=== PATIENT | male | born 1965 | race Caucasian/White ===

== ENCOUNTER 2017-05-10 10:25 | Inpatient (IN) | payer OTHER ==
[~2017-05-10] VITALS: Ht 175.3 cm; Wt 80.7 kg
[2017-05-18] VITALS (25 sets, daily range): BP systolic 85–127; BP diastolic 45–85; PULSE 62–89; RESP 10–20; Ht 175.3 cm; Wt 80.7 kg
--- NOTE | 2017-05-18 06:27 | HP ---
DATE OF ADMISSION: 05/18/2017 SUBJECTIVE: This patient was originally seen in the office for evaluation of low back pain with pain going into the lower extremities. 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 Conservative management was offered to the patient in the form of an epidural injections. The patient did not improved. He also received physical therapy and pain management, which did not help the patient at all. Condition is getting worse. The patient is having more pain and is having difficulty with day-to-day activities. It is sounding more definite nothing can be done. At this point, the only option left is surgical intervention. PAST MEDICAL HISTORY: Per chart. PAST SURGICAL HISTORY: Per chart. SOCIAL HISTORY: Denies. ALLERGIES: PER CHART. MEDICATIONS: [__per chart__]. FAMILY HISTORY: Unremarkable. REVIEW OF SYSTEMS: A 10-point review of systems is conducted. Pertinent positives in HPI. PHYSICAL EXAMINATION: GENERAL: The patient is awake, oriented, follows commands properly. He is somewhat uncomfortable sitting in the chair. He is restless. He is constantly moving from left to right and right to left. HEENT: Unremarkable. No signs of oral lesions. NECK: Supple. No thyromegaly. No JVD. No accessory muscle use. PULMONARY: Lungs are clear. ABDOMEN: Soft without guarding. NEURO EXAM: Awake, alert, and oriented. Cranial nerves 2-12 are intact. EXTREMITIES: Upper extremity examination, moves both sides equally, the shoulders, elbows, wrist. Lower extremity examination, on flexion and extension of lumbar spine, the patient has severe low back pain. Flexion and extension of the hips, he has low back pain. He moves both sides equally. I think his knees and ankle sensation is intact throughout. DIAGNOSTICS: MRI of the lumbar spine shows severe lateral recess stenosis on left L3-4 and right L4-L5, l5-s1 stenosis RECOMMENDATIONS: l3-4-5-s1 bilateral laminectomy with in situ fusion.Complications of surgery discussed with pt extensively, pt wants to go ahead with procedure. Dictated By: Augusto Bradford MD /[email or web address]/rosy /Document#: [id number] HENRY
[2017-05-18] MEDS ORDERED: EPHEDrine SULFATE 50 MG/5 ML SYG ONE (07:00)
[2017-05-18] MEDS ORDERED: SUCCINYLCHOLINE CHLORIDE 100 MG/5 ML SYG IV ONE (07:00)
[2017-05-18] MEDS ORDERED: GELATIN SIZE 100 SPONGE ONE ×2 (10:42→13:27)
[2017-05-18] MEDS ORDERED: BUPIVACAINE 0.5%/EPI (SDV) 10 ML INJ ONE (10:43)
[2017-05-18] MEDS ORDERED: THROMBIN 5000 UNIT VIAL ONE (10:43)
[2017-05-18] MEDS ORDERED: IBUP-1542 PO (11:10)
[2017-05-18] MEDS ORDERED: METH500T8 PO (11:12)
[2017-05-18 11:56] LABS: ADD UMIC NO; UR ASCORBIC ACID NEGATIVE (NEGATIVE); UR BILIRUBIN (Dip) NEGATIVE (NEGATIVE); UR BLOOD (Dip) NEGATIVE (NEGATIVE); UR CLARITY CLEAR (CLEAR); UR COLOR YELLOW (YELLOW); UR GLUCOSE (Dip) NEGATIVE (NEGATIVE); UR KETONES (Dip) NEGATIVE (NEGATIVE); UR LEUKOCYTE ESTERASE (Dip) NEGATIVE Leu/ul (NEGATIVE); UR NITRITE (Dip) NEGATIVE (NEGATIVE); UR SPECIFIC GRAVITY (Dip) 1.019 (1.003-1.030); UR TOTAL PROTEIN (Dip) NEGATIVE (NEGATIVE); UR UROBILINOGEN (Dip) NEGATIVE (NEGATIVE)
[2017-05-18] MEDS ORDERED: PROPOFOL 20 ML ONE (12:05)
[2017-05-18] MEDS ORDERED: LIDOCAINE 2% (SDV) 5 ML INJ ONE (12:05)
[2017-05-18] MEDS ORDERED: MIDAZOLAM 1 MG/ML 2 ML INJ ONE (12:06)
[2017-05-18] MEDS ORDERED: FENTAnyl 50 MCG/ML VIAL ONE (12:06)
[2017-05-18 12:11] LABS: INR 0.97; PROTIME 12.9 Sec (12.2-14.2)
[2017-05-18 12:12] LABS: ALBUMIN 4.2 g/dl (3.3-4.9); ALBUMIN/GLOBULIN RATIO 1.2; BILIRUBIN,INDIRECT 0.7 mg/dl (0-1.1); BILIRUBIN,TOTAL 0.7 mg/dl (0.2-1.3); TOTAL PROTEIN 7.7 g/dl (6.1-8.1)
[2017-05-18] MEDS ORDERED: OCULAR LUBRICANT 3.5 GM OPH OINT ONE (12:15)
[2017-05-18 12:18] LABS: BASOPHILS % 0.5 % (0.0-2.0); EOSINOPHILS % 0.5 % (0.0-7.0); HEMOGLOBIN 14.8 g/dl (14.0-18.0); LYMPHOCYTES # 1.6 10^3/ul (0.8-2.9); LYMPHOCYTES % 21.7 % (15.0-51.0); MEAN CORPUSCULAR HEMOGLOBIN 29.3 pg (29.0-33.0); MEAN CORPUSCULAR HGB CONC 33.6 g/dl (32.0-37.0); MEAN CORPUSCULAR VOLUME 87.1 fl (82.0-101.0); MEAN PLATELET VOLUME 10.1 fl (7.4-10.4); MONOCYTE # 0.6 10^3/ul (0.3-0.9); MONOCYTES % 7.6 % (0.0-11.0); NEUTROPHILS % 69.4 % (39.0-77.0); PLATELET COUNT 234 10^3/UL (140-415); RED BLOOD COUNT 5.05 10^6/ul (4.70-6.10); RED CELL DISTRIBUTION WIDTH 13.7 % (11.5-14.5); WHITE BLOOD COUNT 7.5 10^3/ul (4.8-10.8)
[2017-05-18 12:20] LABS: CALCIUM 9.3 mg/dl (8.4-10.2); CREATININE 0.87 mg/dl (0.61-1.24); POTASSIUM 3.8 mmol/L (3.5-5.1)
[2017-05-18] MEDS ORDERED: DEXAMETHASONE 4 MG/ML 1 ML INJ ONE (12:28)
[2017-05-18] MEDS ORDERED: CEFAZOLIN 1 GM INJ ONE (12:28)
[2017-05-18] MEDS ORDERED: ONDANSETRON 4 MG INJ ONE (12:28)
[2017-05-18] MEDS ORDERED: ROCURONIUM 50 MG INJ ONE (12:28)
[2017-05-18] MEDS ORDERED: METOCLOPRAMIDE 10 MG INJ ONE (12:28)
[2017-05-18] MEDS ORDERED: ACETAMINOPHEN 1000MG/100ML IV 100 ML ONE (12:36)
[2017-05-18] MEDS ORDERED: HYDROmorphONE 2 MG/ML SYG ONE (12:45)
[2017-05-18] MEDS ORDERED: POLYMYXIN/BACITRACIN 1L IRRIG IRR ONE (12:54)
[2017-05-18 13:27] LABS: PARTIAL THROMBOPLASTIN TIME 31.1 Sec (25.0-35.0)
[2017-05-18] MEDS ORDERED: PROCHLORPERAZINE 10 MG INJ IV PRN (13:30)
[2017-05-18] MEDS ORDERED: oxyCODONE 5 MG TAB PO PRN ×2 (13:30)
[2017-05-18] MEDS ORDERED: DIPHENHYDRAMINE 50 MG INJ IV PRN (13:30)
[2017-05-18] MEDS ORDERED: ONDANSETRON 4 MG INJ IV PRN ×2 (13:30→14:30)
[2017-05-18] MEDS ORDERED: HYDROmorphONE (0.2 MG/ML) 10ML SYG IV PRN (13:30)
[2017-05-18] MEDS ORDERED: FENTAnyl 50 MCG/ML VIAL IV PRN (13:30)
[2017-05-18] MEDS ORDERED: MEPERIDINE 25 MG INJ IV PRN (13:30)
[2017-05-18] MEDS ORDERED: GLYCOPYRROLATE 1 MG INJ ONE (13:42)
[2017-05-18] MEDS ORDERED: NEOSTIGMINE 3 MG/3 ML SYRINGE ONE (13:42)
--- NOTE | 2017-05-18 14:12 | SIPON ---
Date/Time of Note Date/Time of Note DATE: 05/18/17 TIME: 14:09 Operative Report Free Text/Dictation lumbar 3 to s1 laminectomy with in situ fusion Preoperative Diagnosis lumbar 3 to s1 severe stenosis Postoperative Diagnosis same Operation/Procedure Performed lumbar 3 to 4 to 5 to s1 laminectomy with in situ fusion Surgeon: JOSE GUEVARA MD research study assistant: ALEYDA BRAVO PA-C Anesthesia Type: general Estimated Blood Loss: 200 - 250 ml's Transfusion Required: no Specimens yes products of laminectomy Grafts/Implants: none Complications: no ALEYDA BRAVO PA-C May 18, 2017 14:12
[2017-05-18] MEDS: HYDROmorphONE (0.2 MG/ML) 10ML SYG IV PRN ×2 (14:37→15:23)
--- NOTE | 2017-05-18 14:44 | OPR ---
Date/Time of Note Date/Time of Note DATE: 05/18/17 TIME: 14:41 Operative Report Free Text/Dictation severe L3 to S1 stenosis with mechanical low back pain Preoperative Diagnosis severe L3 to S1 stenosis with mechanical low back pain Postoperative Diagnosis same Operation Performed Lumbar 3 to Sacral 1 laminectomy with posterolateral in situ fusion Surgeon: JOSE GUEVARA MD family law legal assistant: ALEYDA BRAVO PA-C Anesthesia Type: general Estimated Blood Loss: 200 - 250 ml's Transfusion Required: no Grafts/Implants: none Complications: no Pt Condition Post Procedure: stable Operative\Procedure Findings severe L3 to sacral 1 stenosis Procedure Description L3 to S1 laminectomy with posterolateral in situ fusion JOSE GUEVARA MD May 18, 2017 14:44
--- NOTE | 2017-05-18 16:42 | RADRPT ---
PROCEDURE: Intraoperative fluoroscopic examination, LUMBAR L3-4 L4-5 BILAT LAMINECTOMY CLINICAL INDICATION: LUMBAR L3-4 L4-5 BILAT LAMINECTOMY TECHNIQUE: Multiple fluoroscopic views of the lumbar spine were obtained intraoperatively COMPARISON: none FINDINGS: 3 fluoroscopic images of the lumbar spine are stored, demonstrating laminectomies through the lower lumbar spine. A total of 5.6 seconds of fluoroscopic time was utilized. IMPRESSION: Fluoroscopic guidance for L3 through L5 laminectomies. Fluoroscopic time: 5.6 seconds Number of images: 3 RPTAT: HBST .Navin Hudson MD, MD Date Time Electronically viewed and signed by .Navin Hudson MD, MD on 05/18/2017 16:41 .T/
[2017-05-18] MEDS: DEXTROSE 5%-LR 1,000 ML IV SCH (17:44)
[2017-05-18] MEDS ORDERED: ACETAMINOPHEN 325 MG TAB PO PRN (19:30)
--- NOTE | 2017-05-18 20:32 | HP ---
DATE OF ADMISSION: 05/18/2017 HISTORY OF PRESENT ILLNESS: The patient is a 51-year-old gentleman with a history of chronic lower back pain and was seen by Dr. Bradford as an outpatient. Patient was diagnosed with severe L1-S1 stenosis. The patient was brought in the hospital today and underwent lumbar 3 to sacral 1 laminectomy with posterolateral in situ fusion. The patient is being admitted for further evaluation and management. The patient denies any chest pain, no short of breath. No reported weakness in lower extremities. No reported numbness or tingling in any extremity. No reported headache. The patient denies any abdominal pain. No reported recent fevers or chills. No reported recent fall. Rest of the review of systems were unremarkable. SOCIAL HISTORY: Ex-smoker. No alcohol abuse. PAST SURGICAL HISTORY: None. ALLERGIES: NONE. FAMILY HISTORY: Noncontributory. PHYSICAL EXAMINATION: GENERAL: Patient conscious, awake, fairly alert. VITAL SIGNS: Temperature 97.8, pulse 75, respirations 16, blood pressure 95/53, and O2 sat 97 percent on room air. HEENT: Atraumatic, normocephalic head. Conjunctivae is normal. Oropharynx clear. NECK: No mass. No JVD. CHEST: Fairly clear. CV: Exam is normal. No murmur. ABDOMEN: Soft, nontender. EXTREMITIES: Pulses palpable. SKIN: Without acute rash. The patient is awake, alert, follows simple commands. NEUROLOGIC: Does not have any gross neuro deficits although exam was limited due to recent surgery. LABS: WBC 7.5, hemoglobin 14.8, and platelet 234. Sodium 141, potassium 3.8, BUN 13, creatinine 0.8, glucose 111. Liver enzymes normal. IMPRESSION: Severe L3-S1 stenosis with mechanical low back pain status post lumbar 3 to sacral 1 laminectomy with posterolateral in situ fusion. PLAN: Patient admitted on medical floor. Patient will be started on IV cefazolin as per protocol. Patient will be given IV fluids and will be started on IV morphine and Percocet for pain control. IV Zofran for nausea and vomiting. We will use SCD for DVT prophylaxis. We will continue follow recommendations of Dr. Bradford. Dictated By: Win Hodgson MD /[email or web address]/wilmer /Document#: [id number]
[2017-05-18] MEDS: CEFAZOLIN 1 GM/50 ML (PMX) 50 ML IVPB SCH (22:09)
[2017-05-18] MEDS: morphine 2 MG INJ IV PRN (22:09)
[2017-05-19] MEDS: DEXTROSE 5%-LR 1,000 ML IV SCH ×4 (00:30→21:13)
[2017-05-19] MEDS: morphine 2 MG INJ IV PRN ×2 (01:45→12:21)
[2017-05-19 02:05] VITALS: BP 113/67; RESP 18
[2017-05-19] MEDS: CEFAZOLIN 1 GM/50 ML (PMX) 50 ML IVPB SCH ×3 (05:30→22:27)
[2017-05-19 07:37] VITALS: BP 111/66; RESP 20
[2017-05-19] MEDS: HYDROCODONE/APAP (10/325) TAB PO PRN ×3 (07:55→21:12)
--- NOTE | 2017-05-19 13:21 | OPR ---
DATE OF OPERATION: 05/18/2017 PREOPERATIVE DIAGNOSES: 1. Lumbar foraminal stenosis. 2. Lumbar central canal stenosis. 3. Lumbar radiculopathy. 4. Neurogenic claudication. 5. Mechanical low back pain due to lumbar spondylosis at L3-4, L4-5. POSTOPERATIVE DIAGNOSES: 1. Lumbar foraminal stenosis. 2. Lumbar central canal stenosis. 3. Lumbar radiculopathy. 4. Neurogenic claudication. 5. Mechanical low back pain due to lumbar spondylosis at L3-4, L4-5. OPERATION PERFORMED: 1. L3-L4 posterolateral fusion, CPT 05505. 2. L4-L5 posterolateral fusion, CPT 71418. 3. L3 bilateral laminectomy, facetectomy and foraminotomy, CPT 08499. 4. L4 and L5 additional 2-level bilateral laminectomy, facetectomy and foraminotomy, CPT 83780 x2. SURGEON: Dr. Augusto Bradford. PERFORMANCE INSTRUCTOR: Cl Dupree PA-C. COMPLICATIONS: None. ANESTHESIA: General endotracheal. ESTIMATED BLOOD LOSS: Less than 200 mL. COUNTS: Needle count and sponge count were correct. INDICATIONS FOR OPERATION: The patient is 51, has been complaining of low back pain, leg pain. Has severe stenosis at L3-L4, L4-L5, will proceed with lumbar laminectomy with decompression at the central, lateral spinal canal at the level of L3-L4, L4-L5. There is foraminal stenosis, central canal stenosis. Risks and benefits of operations including anesthesia, infection, bleeding, permanent neurological injury and were explained. Patient agreed to proceed with the operation outpatient and signed the consent. OPERATIVE PROCEDURE: The patient was placed in the supine position after adequate general endotracheal anesthesia was obtained. The patient was turned in prone on vertical bolsters. The back of the lumbar spine was shaved, prepped in the normal sterile fashion. Lidocaine with epinephrine was injected. A midline incision was made with 10 blade. It was carried to the L3-L4, L4-L5 interspace. The transverse process of L3, L4, L5 was identified and deep retractors were placed inferior. Laminectomy of the L3, L4 and L5 was done, starting with double- action rongeurs, following that with Kerrison punch #3, #4 and #5 decompressing the neural foramina, following the nerve root of L3, L4, L5 and S1 all the way deep into the neural foramen. Following this, the area was irrigated with bacitracin saline solution. All the bleeders were stopped with bipolar cautery. The spinal monitor showed improvement of signal throughout. Following this, a closure was started with placement of a medium- size Hemovac drain in the wound, exiting from the skin through a separate stab incision, was secured to the skin with sutures. Closure of the wound was done with #1 Vicryl for the lumbodorsal fascia. Two anterior Vicryl sutures were placed in the subcutaneous tissue and Dermabond for the skin. The patient tolerated the procedure well, was taken to postanesthesia recovery in stable condition, following commands, moving all muscle groups of the upper and lower extremities. Dictated By: Augusto Bradford MD /[email or web address]/erika /Document#: [id number]
--- NOTE | 2017-05-19 14:38 | CONS ---
Date/Time of Note Date/Time of Note DATE: 05/19/17 TIME: 14:36 Assessment/Plan Assessment/Plan Additional Assessment/Plan seen/examined sp l3-s1 laminectomy awake/alert/follows/moves all/sensation intact pt dropped bp in low 60's after pt ivf bolus, adjust morphine dose, nc o2. cont with hemovac additional 24hrs repeat cbc Consultation Date/Type/Reason Admit Date/Time May 18, 2017 at 10:33 Initial Consult Date Exam/Review of Systems Vital Signs Vitals Vital Signs Date Time Temp Pulse Resp B/P Pulse Ox O2 Delivery O2 Flow Rate FiO2 05/19/17 07:37 98.0 72 20 111/66 98 05/18/17 15:35 Room Air 05/18/17 14:20 8.0 Intake and Output 05/18/17 05/18/17 05/19/17 14:59 22:59 06:59 Intake Total 1200 ml 150 ml 1830 ml Output Total 420 ml 300 ml 850 ml Balance 780 ml -150 ml 980 ml Results Result Diagram: 05/18/17 1120 05/18/17 1120 Medications Medications Current Medications Cefazolin Sodium 50 ml @ 100 mls/hr Q8 IVPB Last administered on 05/19/17 13: 24; Admin Dose 100 MLS/HR; Start 05/18/17 at 22:00; Stop 05/19/17 at 22:00 Dextrose/Lactated Ringer's (D5-Lr) 1,000 ml @ 100 mls/hr Q10H IV Last administered on 05/19/17 12:28; Admin Dose 100 MLS/HR; Start 05/18/17 at 14:30 Morphine Sulfate (morphine) 2 mg Q2H PRN IV severe pain Last administered on 12:21; Admin Dose 2 MG; Start 05/18/17 at 14:30 Ondansetron HCl (Zofran Inj) 4 mg Q6H PRN IV NAUSEA AND/OR VOMITING; Start 05/18 at 14:30 Acetaminophen/ Hydrocodone Bitart ([place] (10/325)) 1 tab Q6H PRN PO mild to mod pain Last administered on 05/19/17 07:55; Admin Dose 1 TAB; Start 05/18/17 at 14:30 Acetaminophen (Tylenol Tab) 650 mg Q4H PRN PO PAIN AND OR ELEVATED TEMP; Start 05/18/17 at 19:30 ALEYDA BRAVO PA-C May 19, 2017 14:38
[2017-05-19] MEDS ORDERED: DEXTROSE 5%-LR 1,000 ML IV STA ×2 (14:41→15:41)
[2017-05-19 15:32] LABS: BASOPHILS % 0.2 % (0.0-2.0); EOSINOPHILS % 0.1 % (0.0-7.0); HEMATOCRIT 36.5 % (42.0-52.0); HEMOGLOBIN 12.5 g/dl (14.0-18.0); LYMPHOCYTES # 1.8 10^3/ul (0.8-2.9); LYMPHOCYTES % 14.7 % (15.0-51.0); MEAN CORPUSCULAR HEMOGLOBIN 30.8 pg (29.0-33.0); MEAN CORPUSCULAR HGB CONC 34.2 g/dl (32.0-37.0); MEAN CORPUSCULAR VOLUME 89.9 fl (82.0-101.0); MONOCYTE # 1.2 10^3/ul (0.3-0.9); MONOCYTES % 9.5 % (0.0-11.0); PLATELET COUNT 210 10^3/UL (140-415); RED BLOOD COUNT 4.06 10^6/ul (4.70-6.10); RED CELL DISTRIBUTION WIDTH 13.7 % (11.5-14.5); WHITE BLOOD COUNT 12.2 10^3/ul (4.8-10.8)
[2017-05-19 15:34] VITALS: BP 111/72; RESP 20
[2017-05-19 20:39] VITALS: BP 107/64; RESP 20
[2017-05-20] MEDS: morphine 2 MG INJ IV PRN ×3 (01:18→17:45)
[2017-05-20 04:00] VITALS: BP 108/52; PULSE 93; RESP 18
--- NOTE | 2017-05-20 04:04 | PN ---
DATE: 05/19/2017 SUBJECTIVE DATA: Patient's postoperative pain has improved. Patient is awake, alert, and does not have any focal sensorimotor weakness. Patient denies any chest pain. No shortness of breath. OBJECTIVE DATA: VITAL SIGNS: Stable. Patient had low-grade temperature earlier, T-max of 99.6. HEENT: No eye discharge. Oropharynx clear. NECK: No mass. CHEST: Fairly clear. CVS: Normal. No murmur. ABDOMEN: Soft, nondistended. EXTREMITIES: No leg edema. NEURO: Patient is awake, alert. IMPRESSION: 1. Lumbar foraminal stenosis. 2. Lumbar central canal stenosis. 3. Lumbar radiculopathy eliciting claudication. 4. Lumbar spondylosis leading to mechanical low back pain. 5. Status post surgery. PLAN: Continue IV fluid, pain medication. Will continue postoperative care as per Dr. Bradford. Dictated By: Win Hodgson MD /[email or web address]/aileen /Document#: [id number]
[2017-05-20 08:07] VITALS: BP 106/56; RESP 18
[2017-05-20] MEDS: DEXTROSE 5%-LR 1,000 ML IV SCH (08:52)
--- NOTE | 2017-05-20 10:49 | CONS ---
Date/Time of Note Date/Time of Note DATE: 05/20/17 TIME: 10:46 Assessment/Plan Assessment/Plan Additional Assessment/Plan seen/examined awake/alert/follows/moves all/sensation intact vitals stable today, h/h stable. hemovac with 40cc output, will dc hemovac today cont pt/ot may go home [place] if ambulates better and if pain under control Consultation Date/Type/Reason Admit Date/Time May 18, 2017 at 10:33 Exam/Review of Systems Vital Signs Vitals Vital Signs Date Time Temp Pulse Resp B/P Pulse Ox O2 Delivery O2 Flow Rate FiO2 05/20/17 08:07 97.8 73 18 106/56 97 05/20/17 08:00 Nasal Cannula 1.0 Intake and Output 05/19/17 05/19/17 05/20/17 15:00 23:00 07:00 Intake Total 1250 ml 1710 ml 1280 ml Output Total 1025 ml 1340 ml Balance 1250 ml 685 ml -60 ml Results Result Diagram: 05/19/17 1515 05/18/17 1120 Results 24 hrs Laboratory Tests Test 05/19/17 15:15 White Blood Count 12.2 #H Red Blood Count 4.06 L Hemoglobin 12.5 L Hematocrit 36.5 L Mean Corpuscular Volume 89.9 Mean Corpuscular Hemoglobin 30.8 Mean Corpuscular Hemoglobin Concent 34.2 Red Cell Distribution Width 13.7 Platelet Count 210 Mean Platelet Volume 10.0 Neutrophils % 75.0 Lymphocytes % 14.7 L Monocytes % 9.5 Eosinophils % 0.1 Basophils % 0.2 Nucleated Red Blood Cells % 0.0 Neutrophils # (Manual) 9.2 H Lymphocytes # 1.8 Monocytes # 1.2 H Eosinophils # 0.0 Basophils # 0.0 Nucleated Red Blood Cells # 0.0 Medications Medications Current Medications Dextrose/Lactated Ringer's (D5-Lr) 1,000 ml @ 100 mls/hr Q10H IV Last administered on 05/20/17t 08:52; Admin Dose 100 MLS/HR; Start 05/18/17 at 14:30 Ondansetron HCl (Zofran Inj) 4 mg Q6H PRN IV NAUSEA AND/OR VOMITING; Start 05/18 at 14:30 Acetaminophen/ Hydrocodone Bitart ([place] (10/325)) 1 tab Q6H PRN PO mild to mod pain Last administered on 05/19/17 21:12; Admin Dose 1 TAB; Start 05/18/17 at 14:30 Acetaminophen (Tylenol Tab) 650 mg Q4H PRN PO PAIN AND OR ELEVATED TEMP; Start 05/18/17 at 19:30 Morphine Sulfate (morphine) 2 mg Q4H PRN IV severe pain Last administered on 08:46; Admin Dose 2 MG; Start 05/19/17 at 18:30 ALEYDA BRAVO PA-C May 20, 2017 10:49
[2017-05-20] MEDS: HYDROmorphONE 1 MG/ML SYG IV PRN ×2 (11:12→18:51)
[2017-05-20 13:49] VITALS: BP 101/55; RESP 18
--- NOTE | 2017-05-20 16:49 | PN ---
Date/Time of Note Date/Time of Note DATE: 05/20/17 TIME: 16:48 Assessment/Plan VTE Prophylaxis VTE Prophylaxis Intervention: other Lines/Catheters IV Catheter Type (from Nrsg): Peripheral IV Urinary Cath still in place: Yes Assessment/Plan Assessment/Plan 1. Lumbar foraminal stenosis. 2. Lumbar central canal stenosis. 3. Lumbar radiculopathy eliciting claudication. 4. Lumbar spondylosis leading to mechanical low back pain. 5. Status post surgery. PLAN: Continue IV fluid, pain medication. Will continue postoperative care as per Dr. Bradford. Exam/Review of Systems Vital Signs Vitals Vital Signs Date Time Temp Pulse Resp B/P Pulse Ox O2 Delivery O2 Flow Rate FiO2 05/20/17 13:49 100.4 69 18 101/55 100 05/20/17 08:00 Nasal Cannula 1.0 Intake and Output 05/19/17 05/19/17 05/20/17 15:00 23:00 07:00 Intake Total 1250 ml 1710 ml 1280 ml Output Total 1025 ml 1340 ml Balance 1250 ml 685 ml -60 ml Results Result Diagram: 05/19/17 1515 05/18/17 1120 Medications Medications Current Medications Dextrose/Lactated Ringer's (D5-Lr) 1,000 ml @ 100 mls/hr Q10H IV Last administered on 05/20/17 08:52; Admin Dose 100 MLS/HR; Start 05/18/17 at 14:30 Ondansetron HCl (Zofran Inj) 4 mg Q6H PRN IV NAUSEA AND/OR VOMITING; Start 05/18 at 14:30 Acetaminophen/ Hydrocodone Bitart ([place] (10/325)) 1 tab Q6H PRN PO mild to mod pain Last administered on 05/19/17 21:12; Admin Dose 1 TAB; Start 05/18/17 at 14:30 Acetaminophen (Tylenol Tab) 650 mg Q4H PRN PO PAIN AND OR ELEVATED TEMP; Start 05/18/17 at 19:30 Morphine Sulfate (morphine) 2 mg Q4H PRN IV mod pain Last administered on 08:46; Admin Dose 2 MG; Start 05/19/17 at 18:30 Hydromorphone HCl (Dilaudid) 1 mg Q6H PRN IV PAIN Last administered on t 11:12; Admin Dose 1 MG; Start 05/20/17 at 11:00 ALIZA MCCALLUM May 20, 2017 16:49
[2017-05-20 20:05] VITALS: BP 100/57; RESP 18
[2017-05-20] MEDS: HYDROCODONE/APAP (10/325) TAB PO PRN (22:47)
[2017-05-21] MEDS: DEXTROSE 5%-LR 1,000 ML IV SCH ×2 (00:48→12:30)
[2017-05-21 02:56] VITALS: BP 107/65; RESP 20
[2017-05-21 07:32] VITALS: BP 96/56; RESP 18
[2017-05-21] MEDS: HYDROCODONE/APAP (10/325) TAB PO PRN ×2 (08:24→15:17)
[2017-05-21 14:40] VITALS: BP 99/60; RESP 19
--- NOTE | 2017-05-21 15:38 | PDOCDIS ---
Discharge Instructions HOME CARE INSTRUCTIONS: Diet Instructions: RegularSpecial Diet: REGULAR ACTIVITY: Activity Restrictions: Slowly Increase Activity Rest between Activity Do not Drive Do not operate Machinery Do not operate Power Tool Avoid Heavy Housework Bathing Restrictions: Sponge Bath FOLLOW UP/APPOINTMENTS Follow-up Plan FU with Primary MD x 1 week FU with neuro surgery as recommended Call 911 or go he nearest hospital if symptoms get worse. Florin Hodgson/staff/ patient ALIZA MCCALLUM May 21, 2017 15:38
[2017-05-21] MEDS ORDERED: DOCU-144 PO (15:40)
[2017-05-21] MEDS ORDERED: Hydrocodone/Apap (10/325) PO (15:40)
[2017-05-21] MEDS ORDERED: PANT40TA4 PO (15:40)
--- NOTE | 2017-05-21 15:41 | DS ---
Date/Time of Note Date/Time of Note DATE: 05/21/17 TIME: 15:41 Discharge Summary Admission/Discharge Info Admit Date/Time May 18, 2017 at 10:33 Discharge Date/Time Home Meds Active Scripts Pantoprazole (Protonix) 40 Mg Tabec, 40 MG PO DAILY, #30 TAB Prov:ALIZA MCCALLUM 05/21/17 Docusate Sodium* (Colace*) 100 Mg Capsule, 100 MG PO BID, #30 CAP Prov:ALIZA MCCALLUM 05/21/17 [Hydrocodone/Apap ()] 1 TAB TAB No Conflict Check, 1 TAB PO Q6H Y for mild to mod pain, #30 Prov:ALIZA MCCALLUM 05/21/17 Reported Medications Methocarbamol* (Methocarbamol*) 500 Mg Tablet, 1000 MG PO Q6 Y for PAIN, TAB 05/18/17 Ibuprofen* (Motrin*) 600 Mg Tab, 600 MG PO BID Y for PAIN, TAB 05/18/17 Primary Care Provider Not On Staff Doctor Time spent on discharge: < 30 minutes ALIZA MCCALLUM May 21, 2017 15:41
== END 2017-05-21 19:18 | disposition home or self-care (01) | DRG 460 ==
LOC: UNDOADMIN 10:25 → REC 10:25 → EDSTATUS 12:30 → REC 05-18 10:33 → MS1 05-18 15:36 → UNDODISIN 05-20 20:05
PROVIDERS: ADMIT Neurological Surgery; ATTEND Neurological Surgery
PROC: 0SG10A1 (ICD-10-PCS; principal; 2017-05-18 12:00)
DX: M47.26 Other spondylosis with radiculopathy, lumbar region (principal); I73.9 Peripheral vascular disease, unspecified; M48.06 Spinal stenosis, lumbar region
CPT/HCPCS: 72100; 80053; 81003; 85025; 85610; 85730; 87086; 97116; 97162; 97530; C1762; J0131; J0690; J1100; J1170; J2175; J2250; J2270; J2405; J2710; J2765; J3010; J7121; J7999